=== PATIENT | male | born 1995 | race Caucasian/White ===

== ENCOUNTER 2022-10-14 18:08 | Emergency (ER) | payer SELFPAY ==
[~2022-10-14] VITALS: Ht 167.6 cm; Wt 70.0 kg
[2022-10-14 18:12] VITALS: BP 113/77; PULSE 85; RESP 16; TEMP 99.4; O2SAT 96
== END 2022-10-14 18:57 | disposition left against medical advice (07) ==
LOC: ER 18:08
DX: Z53.21 Procedure and treatment not carried out due to patient leaving prior to being seen by health care provider (principal)
CPT/HCPCS: 99281